=== PATIENT | female | born 1980 | race African-American/Black ===

== ENCOUNTER 2020-01-01 08:48 | Emergency (ER) | payer MEDICAID ==
[~2020-01-01] VITALS: Ht 160 cm; Wt 81.8 kg
[2020-01-01 09:15] VITALS: BP 120/80
== END 2020-01-01 10:19 | disposition left against medical advice (07) ==
LOC: ER 08:55
DX: R51 Headache (principal); Z53.21 Procedure and treatment not carried out due to patient leaving prior to being seen by health care provider
CPT/HCPCS: 99283

== ENCOUNTER 2020-10-20 14:57 | Emergency (ER) | payer MEDICAID ==
[~2020-10-20] VITALS: Ht 160 cm; Wt 82.0 kg
[2020-10-20 15:03] VITALS: BP 122/77
[2020-10-20] MEDS ORDERED: IBUPROFEN 600MG TABLET PO ONE (15:15)
[2020-10-20] MEDS ORDERED: SULF1TAB48 MT (15:18)
[2020-10-20] MEDS ORDERED: IBUP-2029 MT (15:18)
[2020-10-20] MEDS ORDERED: CEPH500T MT (15:18)
== END 2020-10-20 15:44 | disposition home or self-care (01) ==
LOC: ER 14:57
DX: L03.116 Cellulitis of left lower limb (principal); M79.652 Pain in left thigh; J45.909 Unspecified asthma, uncomplicated
CPT/HCPCS: 81025; 99283